=== PATIENT | male | born 1980 | race Caucasian/White ===

== ENCOUNTER 2018-10-13 02:20 | Emergency (ER) | payer OTHER ==
[2018-10-13 02:43] VITALS: BP 116/79; PULSE 82; TEMP 98.6; BMI 30.2
--- NOTE | 2018-10-13 02:52 | PDOC ---
Attending Attestation - Resident Resident Name: Shyann Marin - ED Attending Attestation I have performed the following: I have examined & evaluated the patient, The case was reviewed & discussed with the resident, I agree w/resident's findings & plan - HPI HPI: 10/13/18 03:17 Pt has FB sensation in the medial right eye. Slight redness; but no vision changes. Pt has no story of FB flying into eye. He just was at home and felt FB in the eye. A couple weeks back he had a stye treated at his eye doc's office. Pt doesn't use glasses or contacts. Pt washed eyes out with visene. - Physicial Exam PE: 10/13/18 03:20 Agree with resident exam. He has no FB in the eye at this time, as far as we can see. He has no STS of the face or the eye. No vision changes. - Medical Decision Making 10/13/18 03:21 Home with eye abx ointment/drops. Pt can follow with his pophthalmologiist. His fluorescine exam in the ER is normal today.
--- NOTE | 2018-10-13 03:05 | PDOC ---
History of Present Illness - General Stated Complaint: EYE PAIN Time Seen by Provider: 10/13/18 02:30 - History of Present Illness Initial Comments: Chuck Salinas is a 37yo man with a recent R eye stye removal who presents with a foreign body sensation in his right eye w/ accompanying redness and pain. He says that he woke up about 4 days ago with the sensation that something was in his eye, but he does not remember anything happening or anything falling into his eye. He has tried to rinse it out with water at home and used OTC eyedrops for the irritation, but it has not resolved. He denies vision changes, photophobia, discharge, or pain with eye movement. Past History - Past Medical History Allergies/Adverse Reactions: Allergies Allergy/AdvReac Type Severity Reaction Status Date / Time No Known Allergies Allergy Verified 10/13/18 02:42 Home Medications: Ambulatory Orders traZODone HCL [Trazodone HCl] 100 mg PO HS #30 tablet 11/28/17 Buprenorphine/Naloxone [Suboxone 8Mg/2Mg Sl Film -] 1 each SL DAILY #30 film MDD 1 11/29/17 Ofloxacin 0.3% Ophth Soln [Ocuflox -] 1 drop OP TID 7 Days #10 ml 10/13/18 Anemia: No Asthma: No Cancer: No Cardiac Disorders: No CVA: No COPD: No CHF: No Dementia: No Diabetes: No GI Disorders: No Disorders: No HTN: No Hypercholesterolemia: No Kidney Stones: No Liver Disease: No Seizures: No - Reproductive History Testicular Surgery: No - Suicide/Smoking/Psychosocial Hx Smoking History: Current every day smoker Have you smoked in the past 12 months: Yes Number of Cigarettes Smoked Daily: 10 Cigars Per Day: 0 Information on smoking cessation initiated: No 'Breaking Loose' booklet given: 11/02/17 Hx Alcohol Use: No Drug/Substance Use Hx: No Substance Use Type: Heroin (Started using heroin at age 29, consumes 5 bags daily. Last used on 11/02/17), Marijuana (Started smoking marijuana at age 17, consumes 4 blunts daily. Last smoked on 11/02/17) Hx Substance Use Treatment: Yes (One previous inpt detox & one inpt rehab @ [facility] ) Review of Systems - Review of Systems Comments:: General: No fevers, no chills, no weight or appetite change, no malaise HEENT: No changes in vision, no changes in hearing, no congestion, no sore throat. +eye redness, foreign body sensation CV: No chest pain, no palpitations, no LE edema Pulm: No SOB, no cough, no wheezing GI: No nausea or vomiting, no change in bowel habits, no melena : No frequency, no urgency, no dysuria Musc: No back pain, no joint swelling, no recent injury Skin: No rash, no lesions, no erythema Endo: No excessive thirst, no heat/cold intolerance Heme: No unusual bruising or bleeding, no swollen glands Neuro: No syncope, no numbness/tingling, no focal weakness Vasc: No claudication Psych: No recent change in mood, no SI or HI *Physical Exam - Vital Signs Last Vital Signs Temp Pulse Resp BP Pulse Ox 98.6 F 82 20 116/79 99 10/13/18 02:42 10/13/18 02:42 10/13/18 02:42 10/13/18 02:42 10/13/18 02:42 - Physical Exam Comments: General: Comfortable, no acute distress HEENT: PERRL, EOMI, R eye w/ injected conjunctiva. Vision grossly intact. No pain with eye movement. Fluroscein exam w/o corneal defect appreciated. Cards: RRR Pulm: Comfortable on room air Ext: Atraumatic. No LE edema. ROM intact. Vasc: Extremities WWP. Skin: Normal color, no rashes or lesions Neuro: A&Ox3, CN grossly intact, normal speech, motor/sensory grossly intact and symmetric Psych: Mood appropriate to situation Moderate Sedation - Procedure Monitoring Vital Signs: Procedure Monitoring Vital Signs Temperature 98.6 F 10/13/18 02:42 Pulse Rate 82 10/13/18 02:42 Respiratory Rate 20 10/13/18 02:42 Blood Pressure 116/79 10/13/18 02:42 O2 Sat by Pulse Oximetry (%) 99 10/13/18 02:42 Medical Decision Making - Medical Decision Making 10/13/18 03:05 Chuck Salinas is a 37yo man who presents w/ right eye irritation, erythema, and foreign body sensation for 4 days. - Suspect corneal abrasion - Fluorescein exam completed w/o obvious abrasion or defect. No stye, no abnormality noted other than erythema 10/13/18 04:14 - Pt examined by Dr Torres, who also does not see any corneal defect, abrasion, or foreign body - Will d/c with antibiotic drops to use at home. Pt has established care with ophthalmology, Dr Mullen, after his recent stye removal. Should follow up if symptoms do not improve, especially as the procedure was on his right eye several weeks ago. Discussed with Shyann Triana PGY1 *DC/Admit/Observation/Transfer Diagnosis at time of Disposition: Eye irritation - Discharge Dispostion Disposition: HOME Condition at time of disposition: Stable Decision to Admit order: No - Prescriptions Prescriptions: Ofloxacin 0.3% Ophth Soln [Ocuflox -] 1 drop OP TID 7 Days #10 ml - Referrals Referrals: Kentrell Mullen MD [Staff Physician] - - Patient Instructions Printed Discharge Instructions: DI for Red Eye Additional Instructions: Discharge Instructions: - You were seen in the ER for a red, painful eye with the sensation of something stuck in your eye. There was nothing seen, but you likely had a scratch on the surface of your eye when the pain first started - You have been prescribed an antibiotic eye drop to use twice daily for one week. Please continue to use the drop even if your symptoms improve. - You have been referred to Dr Mullen, an airplane captain. Make an appointment to see him within 1-2 weeks, sooner if your symptoms do not improve as expected. - Seek immediate medical care if your symptoms worsen, you have changes in your vision, you have pain with eye movement, or you have any medical emergency. - Post Discharge Activity
== END 2018-10-13 03:44 | disposition home or self-care (01) ==
LOC: JER 02:20
DX: H57.89 Other specified disorders of eye and adnexa (principal)
CPT/HCPCS: 99281-25

== ENCOUNTER 2020-11-22 08:33 | Emergency (ER) | payer OTHER ==
[2020-11-22 08:51] VITALS: BP 124/92; PULSE 90; TEMP 98.6; BMI 27.2
[2020-11-22 09:22] LABS: BASO % 0.8 % (0-2.0); EOS % 2.3 % (0-4.5); HEMATOCRIT 36.9 % (35.4-49); HEMOGLOBIN 12.5 GM/dL (11.7-16.9); MCHC 33.8 g/dl (32.0-35.9); MEAN CELL VOLUME 82.7 fl (80-96); MONO % 9.1 % (3.8-10.2); NEUT % 59.8 % (42.8-82.8); PLATELET COUNT 234 K/MM3 (134-434); RBC 4.47 M/mm3 (4.00-5.60); RDW 13.9 % (11.9-15.9); WHITE BLOOD COUNT 8.4 K/mm3 (4.0-10.0)
[2020-11-22 09:39] LABS: CALCIUM 9.2 mg/dL (8.5-10.1); POTASSIUM 4.5 mmol/L (3.5-5.1)
[2020-11-22 09:40] LABS: ALBUMIN 3.9 g/dl (3.4-5.0); BLOOD UREA NITROGEN 13.2 mg/dL (7-18)
[2020-11-22 09:44] LABS: BILIRUBIN,TOTAL 0.5 mg/dL (0.2-1); CREATININE 1.2 mg/dL (0.55-1.3); TOT PROT 8.2 g/dl (6.4-8.2)
[2020-11-22] MEDS ORDERED: DALBAVANCIN HCL 1,500 MG in DEXTROSE 5%-WATER - 500 ML IVPB ONE (10:20)
[2020-11-22] MEDS ORDERED: SODIUM CHLORIDE 1,000 ML IV STA (10:33)
[2020-11-22] MEDS ORDERED: DALBAVANCIN HCL 500 MG VIAL (RESTRICTED TO ID ONLY) IVPB ONE ×2 (10:42→10:43)
[2020-11-22 12:04] LABS: ANISOCYTOSIS 0; HELMET CELLS 0; HOWELL-JOLLY BODIES 0; MACROCYTOSIS 0; OVALOCYTE 0; PLATELET ESTIMATE NORMAL; ROULEAU 0; SICKELED CELLS 0; TARGET CELLS 0; TEAR DROP CELLS 0; TOXIC GRANULATION 0
== END 2020-11-22 12:39 | disposition home or self-care (01) ==
LOC: JER 08:33
PROC: 3E03329 Introduction of Other Anti-infective into Peripheral Vein, Percutaneous Approach (ICD-10-PCS; principal; 2020-11-22)
PROC: 3E0337Z Introduction of Electrolytic and Water Balance Substance into Peripheral Vein, Percutaneous Approach (ICD-10-PCS; 2020-11-22)
DX: L03.116 Cellulitis of left lower limb (principal); L03.115 Cellulitis of right lower limb
CPT/HCPCS: 36415; 80053; 80074; 85025; 87040; 93970-TC; 99284-25; J0875

== ENCOUNTER 2021-10-30 10:51 | Emergency (ER) | payer OTHER ==
[2021-10-30 11:03] VITALS: BP 145/79; PULSE 80; TEMP 97.8; BMI 25.0
[2021-10-30] MEDS ORDERED: ACETAMINOPHEN 325 MG TABLET (FP) PO ONE (11:07)
[2021-10-30] MEDS ORDERED: ACETAMINOPHEN 325 MG TABLET (FP) ONE (11:12)
== END 2021-10-30 12:23 | disposition home or self-care (01) ==
LOC: JER 10:51
DX: R51.9 Headache, unspecified (principal); R22.0 Localized swelling, mass and lump, head; W19.XXXA Unspecified fall, initial encounter
CPT/HCPCS: 70450-TC; 99284-25